=== PATIENT | female | born 1950 | race Caucasian/White ===

== ENCOUNTER 2018-04-16 13:23 | Emergency (ER) | payer MEDICAID ==
[2018-04-16 13:44] VITALS: BP 166/92; PULSE 70; RESP 18; TEMP 98; O2SAT 97
--- NOTE | 2018-04-16 14:21 | C.PDOC ---
History Of Present Illness 67 y/o female presents to the ED accompanied by family for evaluation s/p PEG tube dysfunction since yesterday. Patient is s/p PEG tube placement following a CVA. Family reports she is now eating by mouth. They deny any coughing, vomiting, diarrhea, fevers, choking, or other associated symptoms. Time Seen by Provider: 04/16/18 13:53 Chief Complaint (Nursing): Medical Clearance History Per: Family History/Exam Limitations: no limitations Onset/Duration Of Symptoms: Days (x2) Current Symptoms Are (Timing): Still Present Past Medical History Reviewed: Historical Data, Nursing Documentation, Vital Signs Vital Signs: Last Vital Signs Temp 98 F 04/16/18 13:38 Pulse 70 04/16/18 13:38 Resp 18 04/16/18 13:38 BP 166/92 H 04/16/18 13:38 Pulse Ox 97 04/16/18 13:38 - Medical History Other PMH: TBI Other Surgeries: PEG tube placement Family History: States: No Known Family Hx - Social History Hx Alcohol Use: No Hx Substance Use: No Review Of Systems Except As Marked, All Systems Reviewed And Found Negative. Constitutional: Negative for: Fever Cardiovascular: Negative for: Chest Pain Respiratory: Negative for: Cough, Shortness of Breath Gastrointestinal: Positive for: Other (PEG tube pulled out). Negative for: Vomiting, Diarrhea Skin: Negative for: Rash Physical Exam - Physical Exam Appears: Non-toxic, No Acute Distress, Other (Elderly female, wearing a helmet) Skin: Warm, Dry Head: Atraumatic, Normacephalic Eye(s): bilateral: Normal Inspection, PERRL, EOMI Oral Mucosa: Moist Neck: Normal ROM Chest: Symmetrical Cardiovascular: Rhythm Regular, No Murmur Respiratory: Normal Breath Sounds, No Rales, No Rhonchi, No Wheezing Gastrointestinal/Abdominal: Soft, No Tenderness, Other (PEG tube stoma with mild localized erythema, no discharge, no catheter in place) Back: Normal Inspection, No CVA Tenderness, No Vertebral Tenderness Extremity: Bilateral: Atraumatic, Normal Color And Temperature Pulses: Left Dorsalis Pedis: Normal, Right Dorsalis Pedis: Normal Neurological/Psych: Normal Speech, Other (Alert, awake, interacting) ED Course And Treatment O2 Sat by Pulse Oximetry: 97 (RA) Pulse Ox Interpretation: Normal Medical Decision Making Medical Decision Making: pulled PEG tube eating PO ok per Surg and GI for d/c and opt f/u. Disposition Doctor Will See Patient In The: Office Counseled Patient/Family Regarding: Studies Performed, Diagnosis - Disposition Referrals: Elissa Rodriguez [Staff Provider] - Ayush Aguilar Jr., MD [Staff Provider] - Germán Vasquez MD [Staff Provider] - Disposition: HOME/ ROUTINE Disposition Time: 14:21 Condition: GOOD Additional Instructions: outpatient f/u with GI/Dr. Rodriguez and Dr. Aguilar- Surgery as needed continue feeds by mouth as tolerated. Instructions: How to Care for Your PEG Tube Forms: [employer] ([employer]wana) - Clinical Impression Clinical Impression: PEG tube malfunction - Scribe Statement The provider has reviewed the documentation as recorded by the Scribe Zoraida Drake Provider Attestation: All medical record entries made by the Scribe were at my direction and personally dictated by me. I have reviewed the chart and agree that the record accurately reflects my personal performance of the history, physical exam, medical decision making, and the department course for this patient. I have also personally directed, reviewed, and agree with the discharge instructions and disposition.
== END 2018-04-16 14:30 | disposition home or self-care (01) ==
LOC: C.ER 13:23
DX: K94.23 Gastrostomy malfunction (principal); Z86.73 Personal history of transient ischemic attack (TIA), and cerebral infarction without residual deficits